=== PATIENT | female | born 1975 | race Caucasian/White ===

== ENCOUNTER 2023-06-28 17:17 | Emergency (ER) | payer BC ==
[~2023-06-28] VITALS: Ht 177.8 cm; Wt 79.7 kg
[2023-06-28 17:21] VITALS: TEMP 98.7
[2023-06-28 18:02] LABS: URINE HCG NEGATIVE (NEG)
[2023-06-28 18:08] LABS: BILIRUBIN,URINE SMALL (Neg); CLARITY,URINE CLEAR (Clear); GLUCOSE, URINE NEGATIVE (Neg); KETONES,URINE >=80 mg/dl (Neg); LEUKOCYTE ESTERASE ,URINE NEGATIVE (Neg); NITRITES, URINE NEGATIVE (Neg); OCCULT BLOOD,URINE TRACE-INTACT (Neg); PROTEIN,URINE TRACE mg/dl (Neg); UROBILINOGEN,URINE 0.2 E.U/dL (0.2-1.0)
[2023-06-28 18:21] LABS: UA COLLECTION TYPE CLN CATCH MIDSTREAM
[2023-06-28 18:22] LABS: COLOR,URINE DARK YELLOW (Yellow)
[2023-06-28 18:23] LABS: BACTERIA,URINE FEW /HPF (Neg); MUCUS STRANDS FEW /LPF (Neg); RBC,URINE 0-2 /HPF (0-2); SQUAMOUS EPITHELIAL CELL,UR FEW /LPF (FEW); WBC,URINE 0-4 /HPF (0-4)
[2023-06-28] MEDS: ondansetron 4mg rapidly disintigrating tab PO ONE (18:42)
[2023-06-28 18:45] LABS: BASOPHILS % (AUTO) 0.2 % (0-1); EOSINOPHILS % (AUTO) 0 % (0-6); HEMOGLOBIN 15.5 g/dl (12.0-16.0); LYMPHOCYTES # (AUTO) 0.7 X10'3 (1.1-4.8); LYMPHOCYTES % (AUTO) 4.5 % (21-51); MEAN CORPUSCULAR HEMOGLOBIN 33.3 PG (27.0-31.0); MEAN CORPUSCULAR HGB CONC 34.5 g/dL (33.0-36.5); MEAN CORPUSCULAR VOLUME 96.4 FL (78-98); MEAN PLATELET VOLUME 8.4 FL (7.4-10.4); MONOCYTES # (AUTO) 0.9 X10'3 (0-0.9); MONOCYTES % (AUTO) 5.8 % (2-12); NEUTROPHILS # (AUTO) 14.4 X10'3 (1.8-7.7); NEUTROPHILS % (AUTO) 89.5 % (42-75); PLATELET COUNT 241 X10'3 (140-440); RED BLOOD COUNT 4.67 X10'6 (4.20-5.60); RED CELL DISTRIBUTION WIDTH 12.6 % (11.5-14.5); WHITE BLOOD COUNT 16.1 X10'3 (4.5-11.0)
[2023-06-28 19:05] LABS: ALANINE AMINOTRANSFERASE 37 U/L (12-78); ALBUMIN 4.5 G/DL (3.4-5.0); ALBUMIN/GLOBULIN RATIO 1.1 (1.1-1.5); ALKALINE PHOSPHATASE 46 IU/L (46-116); ANION GAP 12 (8-16); ASPARTATE AMINO TRANSFERASE 21 U/L (10-37); BILIRUBIN,TOTAL 1.1 MG/DL (0.1-1.0); BLOOD UREA NITROGEN 9 MG/DL (7-18); BUN/CREATININE RATIO 12.9 (10.0-20.0); CALCIUM 10.2 MG/DL (8.5-10.1); CHLORIDE 91 MMOL/L (99-107); GLUCOSE 114 MG/DL (70-104); LIPASE 17 U/L (16-77); SODIUM 132 MMOL/L (135-145); TOTAL CARBON DIOXIDE 28.9 MMOL/L (24-32); TOTAL PROTEIN 8.5 G/DL (6.4-8.2); eCRCL 109 ML/MIN; eGFR 90 ML/MIN
[2023-06-28] MEDS: potassium Cl 20 mEq SR tablet PO STA (19:21)
[2023-06-28] MEDS: ondansetron/PF 4mg/2ml inj IM STA (19:53)
[2023-06-28] MEDS: nitroGLYCERIN 0.4mg SUBLingual tab SL STA (20:03)
[2023-06-28] MEDS: normal saline 1000ml 1,000 ML IV SCH (20:54)
[2023-06-28] MEDS: ondansetron/PF 4mg/2ml inj IV ONE (20:54)
[2023-06-28] MEDS: glucagon, human recombinant 1mg kit IM ONE (20:56)
[2023-06-28] MEDS: morphine 2 MG/ML inj. syringe IV ONE (20:56)
[2023-06-28] MEDS: acetaminophen 1,000mg/100ml IV 100 ML IV STA (21:38)
[2023-06-28] MEDS: potassium CL 10mEq/100ml bag 100 ML IV SCH (22:10)
[2023-06-29 00:07] VITALS: BP 146/89; PULSE 89; RESP 18; O2SAT 99
== END 2023-06-29 00:09 | disposition home or self-care (01) ==
LOC: ER 17:19
DX: T18.128A Food in esophagus causing other injury, initial encounter (principal); R11.2 Nausea with vomiting, unspecified; Z88.8 Allergy status to other drugs, medicaments and biological substances; W44.F3XA Food entering into or through a natural orifice, initial encounter; Y93.89 Activity, other specified; Y92.89 Other specified places as the place of occurrence of the external cause; Y99.8 Other external cause status
CPT/HCPCS: 36415; 71045; 76700; 80053; 81001; 81025; 83690; 84484; 85025; 96361; 96372; 96374; 96375; 99285; J0131; J1610; J2405; J3480; J7030; 96365